=== PATIENT | female | born 1950 | race Two or more races ===

== ENCOUNTER 2023-05-06 10:25 | Emergency (ER) | payer OTHER ==
[~2023-05-06] VITALS: Ht 149.9 cm; Wt 66.7 kg
[2023-05-06] MEDS ORDERED: SIMVASTATIN40 MG PO (10:49)
[2023-05-06] MEDS ORDERED: AMLODIPINE BESYL5 MG PO (10:50)
[2023-05-06] MEDS ORDERED: SYNTHROID50 MCG PO (10:50)
[2023-05-06] MEDS ORDERED: HYDROCHLOROTHIA25 MG PO (10:51)
[2023-05-06] MEDS ORDERED: MAXIMUM D3325 MCG PO (10:52)
[2023-05-06] MEDS ORDERED: LUMIGAN2.5 M1 (10:52)
== END 2023-05-06 14:56 | disposition home or self-care (01) ==
LOC: ER 10:25
DX: M25.511 Pain in right shoulder (principal); I10 Essential (primary) hypertension; E03.8 Other specified hypothyroidism
CPT/HCPCS: 73020; 96372; 99283; J1885

== ENCOUNTER 2023-05-11 08:00 | Outpatient (CLI) | payer OTHER ==
[~2023-05-11 08:00] MED LIST: AMLODIPINE BESYL5 MG PO; HYDROCHLOROTHIA25 MG PO; LUMIGAN2.5 M1; MAXIMUM D3325 MCG PO; SIMVASTATIN40 MG PO; SYNTHROID50 MCG PO
== END 2023-05-11 08:10 | disposition home or self-care (01) ==
LOC: SONOGRAMA 08:00
PROVIDERS: ATTEND Orthopaedic Surgery
DX: M25.511 Pain in right shoulder (principal)

== ENCOUNTER 2024-03-22 12:07 | Outpatient (CLI) | payer OTHER | END 2024-03-22 12:16 | disposition home or self-care (01) | LOC: RAD 12:07 | DX: M25.511 Pain in right shoulder (principal); M25.552 Pain in left hip; M93.222 Osteochondritis dissecans, left elbow ==

== ENCOUNTER 2024-05-02 14:20 | Emergency (ER) | payer OTHER ==
[~2024-05-02] VITALS: Ht 149.9 cm; Wt 67.6 kg
[2024-05-02] MEDS ORDERED: TRIAMCINOLONE ACETONIDE 40 MG/ML VIAL IM ONE (16:30)
[2024-05-02] MEDS ORDERED: KETOROLAC TROMETHAMINE 60 MG VIAL IM ONE ×2 (16:30→16:33)
[2024-05-02] MEDS ORDERED: TRIAMCINOLONE ACETONIDE 40 MG/ML VIAL ONE (16:34)
[2024-05-02 16:50] LABS: HEMATOCRIT 38.5 % (36.0-45.00); HEMOGLOBIN 12.9 g/dL (12.0-15.00); MEAN CELL VOLUME 87.6 fL (80.00-100.00); MEAN CORPUSCULAR HEMOGLOBIN 29.3 pg (27.00-32.0); MEAN CORPUSCULAR HGB CONC 33.5 g/dl (32.0-36.0); PLATELET COUNT 269 K/uL (150-450); RED CELL DISTRIBUTION WIDTH 14.5 % (11.5-14.5)
[2024-05-02 17:13] LABS: ALBUMIN 3.8 gm/dL (3.4-5.0); BILIRUBIN TOTAL 0.18 mg/dL (0.3-1.2); CALCIUM 9.4 mg/dL (8.5-10.1); CREATININE SERUM 1.2 mg/dL (0.55-1.02); GFR 44.16; GLOBULINA 3.4 G/DL (2.4-3.5); POTASSIUM 4.71 mEq/L (3.5-5.1); TOTAL PROTEIN 7.2 gm/dL (6.4-8.2)
[2024-05-02 17:29] LABS: PH,URINE 6.5 (5.0-8.0); URINE APPEARANCE Clear; URINE BILIRRUBIN Negative (NEGATIVE); URINE BLOOD Negative; URINE COLOR Yellow; URINE GLUCOSE Negative (NEGATIVE); URINE KETONE Negative (NEGATIVE); URINE LEUKOCYTE Negative; URINE NITRATE Negative; URINE PROTEIN Negative (NEGATIVE); URINE UROBILINOGEN 0.2 E.U./dl
[2024-05-02 17:33] LABS: URINE EPITHELIAL CELLS 11.8 uL (0.0-38.8); URINE RBC 4.8 uL (0.0-20.8); URINE WBC 10.1 uL (0.0-23.2)
[2024-05-02] MEDS ORDERED: DICLOFENAC SODI75 MG PO (18:03)
[2024-05-02] MEDS ORDERED: NORFLEX100MG PO (18:03)
== END 2024-05-02 18:06 | disposition home or self-care (01) ==
LOC: ER 14:21
PROVIDERS: General Practice
DX: M54.9 Dorsalgia, unspecified (principal); Z88.8 Allergy status to other drugs, medicaments and biological substances
CPT/HCPCS: 36415; 96372; 99282; J1100; J1885

== ENCOUNTER 2024-05-15 09:51 | Outpatient (CLI) | payer OTHER ==
[~2024-05-15 09:51] MED LIST changes: +DICLOFENAC SODI75 MG PO; +NORFLEX100MG PO
== END 2024-05-15 10:03 | disposition home or self-care (01) ==
LOC: SONOGRAMA 09:51
PROVIDERS: ATTEND General Practice
DX: N20.0 Calculus of kidney (principal); N20.1 Calculus of ureter

== ENCOUNTER 2024-05-18 09:36 | Outpatient (CLI) | payer OTHER | END 2024-05-18 09:39 | disposition home or self-care (01) | LOC: TOM 09:36 | PROVIDERS: ATTEND General Practice | DX: R10.13 Epigastric pain (principal) ==